=== PATIENT | female | born 1995 | race Caucasian/White ===

== ENCOUNTER 2020-09-11 06:30 | Inpatient (IN) | payer OTHER ==
[2020-09-11 08:12] VITALS: BMI 32.9
[2020-09-11 08:24] LABS: BASO % 0.3 % (0-2.0); EOS % 3.2 % (0-4.5); HEMATOCRIT 33.8 % (32.4-45.2); HEMOGLOBIN 11.6 GM/dL (10.7-15.3); LYMPH % 20.7 % (8-40); MCH 30.8 pg (25.7-33.7); MCHC 34.4 g/dl (32.0-36.0); MEAN CELL VOLUME 89.7 fl (80-96); MONO % 8.5 % (3.8-10.2); NEUT % 67.3 % (42.8-82.8); PLATELET COUNT 257 K/MM3 (134-434); RBC 3.77 M/mm3 (3.60-5.2); RDW 14.1 % (11.6-15.6); WHITE BLOOD COUNT 11.1 K/mm3 (4.0-10.0)
[2020-09-11] MEDS ORDERED: ELECTROLYTE-148 SOLN 1,000 ML IV SCH ×2 (08:30→11:30)
[2020-09-11 08:34] LABS: PROTHROMBIN TIME (PATIENT) 12.3 SEC (9.7-13.0)
[2020-09-11 08:37] LABS: ACTIVATED PTT 26.8 SECONDS (25.2-36.5)
[2020-09-11] MEDS ORDERED: OXYTOCIN 30 UNITS in 0.9% NS 30 UNIT/500 ML INFUS.BAG IVPB ONE (08:39)
[2020-09-11] MEDS ORDERED: OXYTOCIN 30 UNITS in 0.9% NS 30 UNIT/500 ML INFUS.BAG IVPB SCH (08:40)
[2020-09-11 08:44] LABS: POTASSIUM 3.8 mmol/L (3.5-5.1)
[2020-09-11 08:46] LABS: BLOOD UREA NITROGEN 7.7 mg/dL (7-18); CALCIUM 8.7 mg/dL (8.5-10.1)
[2020-09-11 08:50] LABS: CREATININE 0.5 mg/dL (0.55-1.3)
[2020-09-11] MEDS ORDERED: FENTANYL/BUPIVACAINE/NS/PF - PCEA - 50 ML DISP.SYRIN EP ONE (13:47)
[2020-09-11] MEDS ORDERED: PCA PUMP NR ONE (13:47)
[2020-09-11] MEDS ORDERED: FENTANYL/BUPIVACAINE/NS/PF - PCEA - 50 ML DISP.SYRIN EP SCH (14:10)
[2020-09-11] MEDS ORDERED: NALOXONE HCL 0.4 MG/ML VIAL IVPUSH PRN (14:20)
[2020-09-11] MEDS ORDERED: LIDOCAINE HCL 1% PRESERVATIVE FREE - 30ML VIAL ONE (16:30)
[2020-09-11] MEDS ORDERED: OXYTOCIN 20 UNITS in 0.9% NS 20 UNIT/1,000 ML INFUS.BAG IV ONE (16:31)
[2020-09-11] MEDS: OXYTOCIN 20 UNITS in 0.9% NS 20 UNIT/1,000 ML INFUS.BAG IV SCH (17:06)
[2020-09-11] MEDS ORDERED: BENZOCAINE 20% 57 GM BOTTLE TP PRN (18:10)
[2020-09-11] MEDS ORDERED: BISACODYL 10 MG SUPP.RECT RC PRN (18:10)
[2020-09-11] MEDS ORDERED: WITCH HAZEL 50% (TUCKS) 40 PAD/JAR PAD TP PRN (18:10)
[2020-09-11] MEDS ORDERED: METHYLERGONOVINE MALEATE 0.2 MG/1 ML AMP IM PRN (18:10)
[2020-09-11] MEDS ORDERED: ACETAMINOPHEN 325 MG TABLET (FP) PO PRN (18:10)
[2020-09-11] MEDS ORDERED: BENZOCAINE 28 GM HEMORRHOIDAL OINTMENT TP PRN (18:10)
[2020-09-11] MEDS ORDERED: IBUPROFEN 600 MG TABLET (FP) PO ONE (18:35)
[2020-09-11] MEDS: IBUPROFEN 600 MG TABLET (FP) PO PRN ×2 (18:40→22:36)
[2020-09-12] MEDS: OXYTOCIN 20 UNITS in 0.9% NS 20 UNIT/1,000 ML INFUS.BAG IV SCH (01:25)
[2020-09-12 08:47] LABS: BASO % 0.6 % (0-2.0); EOS % 2.5 % (0-4.5); HEMATOCRIT 36.5 % (32.4-45.2); HEMOGLOBIN 12.4 GM/dL (10.7-15.3); LYMPH % 21.9 % (8-40); MCH 30.7 pg (25.7-33.7); MEAN CELL VOLUME 90.2 fl (80-96); MEAN PLT VOLUME 9.4 fl (7.5-11.1); MONO % 6.9 % (3.8-10.2); NEUT % 68.1 % (42.8-82.8); PLATELET COUNT 246 K/MM3 (134-434); RBC 4.04 M/mm3 (3.60-5.2); WHITE BLOOD COUNT 12.3 K/mm3 (4.0-10.0)
[2020-09-12] MEDS ORDERED: SENNOSIDES/DOCUSATE COMBO (SENNA PLUS) TABLET (UD) PO PRN (22:00)
[2020-09-13 13:28] VITALS: BP 138/81; PULSE 75; TEMP 98
== END 2020-09-13 12:00 | disposition home or self-care (01) | DRG 560 ==
LOC: JLDR 06:30 → J3W 20:32
PROVIDERS: ADMIT Specialist; ATTEND Specialist
PROC: 3E033VJ Introduction of Other Hormone into Peripheral Vein, Percutaneous Approach (ICD-10-PCS; principal; 2020-09-11)
PROC: 10907ZC Drainage of Amniotic Fluid, Therapeutic from Products of Conception, Via Natural or Artificial Opening (ICD-10-PCS; 2020-09-11)
PROC: 10E0XZZ Delivery of Products of Conception, External Approach (ICD-10-PCS; 2020-09-11)
DX: O80 Encounter for full-term uncomplicated delivery (principal); Z3A.39 39 weeks gestation of pregnancy; Z37.0 Single live birth
CPT/HCPCS: 36415; 59409; 80048; 85025; 85610; 85730; 86780; 86850; 86900; 86901

== ENCOUNTER 2024-09-23 16:29 | Emergency (ER) | payer OTHER ==
[2024-09-23 16:37] VITALS: BP 115/70; PULSE 96; RESP 20; TEMP 97.9; BMI 24.8
[2024-09-23] MEDS ORDERED: IBUPROFEN 600 MG TABLET (FP) PO ONE (17:33)
[2024-09-23] MEDS: IBUPROFEN 600 MG TABLET (FP) PO ONE (17:36)
== END 2024-09-23 19:24 | disposition home or self-care (01) ==
LOC: JERFT 16:29
DX: S93.601A Unspecified sprain of right foot, initial encounter (principal); W08.XXXA Fall from other furniture, initial encounter
CPT/HCPCS: 73610-TC-RT-FY; 73630-TC-RT-FY; 99283-25